=== PATIENT | female | born 1975 | race Caucasian/White ===

== ENCOUNTER → 2018-08-11 | Outpatient (CLI) | payer OTHER ==
[~2018-08-11] MED LIST: ALBUTEROL0.09 MG/A1 IH; ALDACTONE 25MG25 MG PO; CIPRO; CIPRO 500MG TA500 MG PO; CODEINE; CYCLOBENZAPRINE10 MG PO; DEPO-PROVER150 MG/M1 IM; FLAGYL; FLAGYL500 MG PO; LOPRESSOR 225 MG/TAB PO; MAXALT10 MG PO; METHOTREXA2.5 MG/TAB IJ; MVI; NORCO 325 MG-51 TAB PO; PREDNISONE 5MG5 MG PO; PREDNISONE20 MG PO; SYNTHROID 0.0.025 MG PO; TYLENOL 500MG500 MG PO; TYLENOL/CODEINE1 ML PO; VICODIN PO; VITAMIN B1100 MCG/ML IM; VITAMIN D5000 IU; VITAMIN D50000 IU PO; ZOFRAN 4MG T4 MG/TAB PO; [UNRECOGNIZED DRUG - OTHER] PO; [UNRECOGNIZED DRUG - REMARK]
== END ==
LOC: MC.RAD 09:00
DX: Z12.31 Encounter for screening mammogram for malignant neoplasm of breast (principal)

== ENCOUNTER 2018-12-14 23:43 | Emergency (ER) | payer OTHER ==
[~2018-12-14] VITALS: Ht 175.3 cm; Wt 143.2 kg
[~2018-12-14 23:43] MED LIST changes: -VITAMIN B1100 MCG/ML IM; +VITAMIN B11000 MCG/M IM
[2018-12-14 23:52] VITALS: TEMP 98.9
[2018-12-15 00:27] LABS: BASO % 0.2 % (0.0-2.0); EOS % 0.4 % (0-4.0); GRAN # 3.6 (1.4-6.5); HEMOGLOBIN 10.2 g/dl (12.5-16.0); LYMPH # 0.5 (1.2-3.4); MEAN CELL VOLUME 79 fl (80.0-100.0); MEAN CORPUSCULAR HEMOGLOBIN 24 pg (27.0-31.0); MEAN CORPUSCULAR HGB CONC 31 g/dl (33.0-37.0); MEAN PLATELET VOLUME 10.2 fl (7.4-10.4); MONO # 0.4 (0.1-0.6); MONO % 7.7 % (1.7-9.3); PLATELET COUNT 230 K/mm3 (130-400); RED BLOOD COUNT 4.22 M/mm3 (4.10-5.30); REDCELL DISTRIBUTION WIDTH-CV 16.8 % (11.5-14.5)
[2018-12-15 00:30] LABS: HEMATOCRIT 33.4 % (37.0-47.0)
[2018-12-15 00:40] LABS: ALBUMIN 3.5 gm/dL (3.5-5.0); CALCIUM 8.7 mg/dL (8.4-10.2); CREATININE, serum 0.65 (0.52-1.25); POTASSIUM 3.7 mmol/L (3.4-5.0); TOTAL PROTEIN 7.1 gm/dL (6.4-8.2)
[2018-12-15 00:55] LABS: C-REACTIVE PROTEIN 8.1 mg/dL (0.0-0.9)
[2018-12-15] MEDS ORDERED: GUAIFENESIN DA473 ML (01:52)
[2018-12-15] MEDS ORDERED: TOPAMAX 25MG25 M1 (01:52)
[2018-12-15] MEDS ORDERED: FOLIC ACID0.4 MG (01:52)
[2018-12-15] MEDS ORDERED: MEDROL 4MG DOSPA4 MG PO (03:02)
[2018-12-15] MEDS ORDERED: TYLENOL W/COD1 UDTAB PO (03:02)
[2018-12-15 03:21] LABS: COLLECTION METHOD CLEAN CATCH
[2018-12-15 03:28] LABS: MUCOUS Present /lpf; PH 6 (5-8); SQUAMOUS EPITHELIAL 0-2 /hpf; URINE APPEARANCE Clear; URINE BACTERIA None Seen /hpf; URINE BILIRUBIN Negative (NEGATIVE); URINE BLOOD 1+ (NEGATIVE); URINE COLOR Yellow; URINE GLUCOSE Negative (NEGATIVE); URINE KETONE 1+ (NEGATIVE); URINE LEUKOCYTE ESTERASE Negative (NEGATIVE); URINE NITRATE Negative (NEGATIVE); URINE PROTEIN(semi-quant) Negative (NEGATIVE); URINE RBC 0-2 /hpf; URINE UROBILINOGEN Negative (NEGATIVE)
[2018-12-15] MEDS ORDERED: PHENERGAN 25 TA25 MG PO (03:32)
[2018-12-15] MEDS ORDERED: PHENERGAN25 MG RC (03:32)
[2018-12-15 03:53] VITALS: BP 114/63; PULSE 76
== END 2018-12-15 03:53 | disposition home or self-care (01) ==
LOC: COL.ER 23:43
PROVIDERS: Emergency Medicine
DX: K50.90 Crohn's disease, unspecified, without complications (principal); R51 Headache; Z86.69 Personal history of other diseases of the nervous system and sense organs
CPT/HCPCS: J1200; J1885; J2405; J2930; J7030

== ENCOUNTER → 2019-02-01 | Outpatient (CLI) | payer OTHER ==
[~2019-02-01] MED LIST changes: +FOLIC ACID0.4 MG; +GUAIFENESIN DA473 ML; +MEDROL 4MG DOSPA4 MG PO; +PHENERGAN 25 TA25 MG PO; +PHENERGAN25 MG RC; +TOPAMAX 25MG25 M1; +TYLENOL W/COD1 UDTAB PO
== END ==
LOC: COL.RAD 12:30
DX: S83.241A Other tear of medial meniscus, current injury, right knee, initial encounter (principal); M22.41 Chondromalacia patellae, right knee

== ENCOUNTER 2020-02-23 13:36 | Emergency (ER) | payer OTHER ==
[~2020-02-23] VITALS: Ht 175.3 cm; Wt 150.0 kg
[2020-02-23 13:50] VITALS: TEMP 97
[2020-02-23] MEDS ORDERED: TYLENOL W/COD1 UDTAB PO (16:45)
[2020-02-23 17:41] VITALS: BP 128/83; PULSE 91
== END 2020-02-23 17:43 | disposition home or self-care (01) ==
LOC: COL.ER 13:36
DX: S89.92XA Unspecified injury of left lower leg, initial encounter (principal); S83.005A Unspecified dislocation of left patella, initial encounter; X50.1XXA Overexertion from prolonged static or awkward postures, initial encounter; Y92.009 Unspecified place in unspecified non-institutional (private) residence as the place of occurrence of the external cause
CPT/HCPCS: J1885; L1846

== ENCOUNTER → 2020-07-02 | Outpatient (CLI) | payer OTHER | LOC: MC.RAD 10:15 | DX: Z12.31 Encounter for screening mammogram for malignant neoplasm of breast (principal) ==

== ENCOUNTER 2021-02-04 07:41 | Emergency (ER) | payer OTHER ==
[~2021-02-04] VITALS: Ht 175.3 cm; Wt 143.2 kg
[2021-02-04 08:18] LABS: ALANINE AMINOTRANSFERASE 20 U/L (4-34); ALBUMIN 3.9 gm/dL (3.5-5.0); ALKALINE PHOSPHATASE 64 U/L (50-136); ANION GAP 10 mmol/L (7-16); AST,SGOT 29 U/L (15-37); BASO % 0.3 % (0.0-2.0); BILIRUBIN,TOTAL 0.7 mg/dL (0.0-1.0); BLOOD UREA NITROGEN 10 mg/dL (7-17); CALCIUM 8.7 mg/dL (8.4-10.2); CARBON DIOXIDE 23 mmol/L (22-30); CHLORIDE 105 mmol/L (98-107); CREATININE, serum 0.65 (0.52-1.25); EOS # 0.1 (0.0-0.7); EOS % 1.2 % (0-4.0); GLUCOSE 104 mg/dL (74-106); GRAN # 5.8 (1.4-6.5); GRAN % 84.7 % (42.2-75.2); HEMOGLOBIN 12.1 g/dl (12.5-16.0); LYMPH # 0.6 (1.2-3.4); LYMPH % 8.2 % (20.0-51.0); MEAN CELL VOLUME 85 fl (80.0-100.0); MEAN CORPUSCULAR HEMOGLOBIN 26 pg (27.0-31.0); MEAN CORPUSCULAR HGB CONC 30 g/dl (33.0-37.0); MEAN PLATELET VOLUME 10.7 fl (7.4-10.4); MONO # 0.4 (0.1-0.6); MONO % 5.2 % (1.7-9.3); PLATELET COUNT 289 K/mm3 (130-400); POTASSIUM 4.1 mmol/L (3.4-5.0); RED BLOOD COUNT 4.73 M/mm3 (4.10-5.30); REDCELL DISTRIBUTION WIDTH-CV 15.9 % (11.5-14.5); SODIUM 138 mmol/L (137-145); TOTAL PROTEIN 7.3 gm/dL (6.4-8.2)
[2021-02-04 08:30] LABS: TROPONIN-I < 0.012 ng/mL (0.000-0.035)
[2021-02-04 11:37] VITALS: BP 122/92; PULSE 79; TEMP 98.1
== END 2021-02-04 11:37 | disposition home or self-care (01) ==
LOC: COL.ER 07:41
PROVIDERS: Emergency Medicine
DX: R07.9 Chest pain, unspecified (principal); R10.9 Unspecified abdominal pain; R79.0 Abnormal level of blood mineral; K50.90 Crohn's disease, unspecified, without complications; Z90.49 Acquired absence of other specified parts of digestive tract; Z88.8 Allergy status to other drugs, medicaments and biological substances; Z20.822 Contact with and (suspected) exposure to COVID-19
CPT/HCPCS: J2270; J2405; J7030

== ENCOUNTER 2021-03-07 12:27 | Emergency (ER) | payer OTHER ==
[~2021-03-07] VITALS: Ht 175.3 cm; Wt 140.9 kg
[2021-03-07 13:00] LABS: HEMATOCRIT 40.8 % (37.0-47.0); HEMOGLOBIN 12.6 g/dl (12.5-16.0); MEAN CELL VOLUME 83 fl (80.0-100.0); MEAN CORPUSCULAR HEMOGLOBIN 26 pg (27.0-31.0); MEAN CORPUSCULAR HGB CONC 31 g/dl (33.0-37.0); MEAN PLATELET VOLUME 10.6 fl (7.4-10.4); PLATELET COUNT 337 K/mm3 (130-400); RED BLOOD COUNT 4.94 M/mm3 (4.10-5.30); REDCELL DISTRIBUTION WIDTH-CV 15.8 % (11.5-14.5)
[2021-03-07 13:06] LABS: INR 1.1 (0.8-3.0); PROTHROMBIN TIME 12.3 SECONDS (9.7-12.8)
[2021-03-07 13:09] LABS: PARTIAL THROMBOPLASTIN TIME 30.1 SECONDS (26.0-37.0)
[2021-03-07 13:16] LABS: BASO % 0.4 % (0.0-2.0); EOS # 0.1 (0.0-0.7); EOS % 0.8 % (0-4.0); GRAN # 6.1 (1.4-6.5); GRAN % 79.7 % (42.2-75.2); LYMPH # 0.9 (1.2-3.4); LYMPH % 12.2 % (20.0-51.0); MONO # 0.5 (0.1-0.6); MONO % 6.6 % (1.7-9.3)
[2021-03-07 13:30] LABS: TROPONIN-I < 0.012 ng/mL (0.000-0.035)
[2021-03-07 13:44] LABS: TSH w REFLEX 2.688 uIU/mL (0.350-4.940)
[2021-03-07] MEDS ORDERED: TOPROL XL 25MG25 MG PO (14:00)
[2021-03-07] MEDS ORDERED: TAMBOCOR50 MG PO (14:00)
[2021-03-07 14:15] VITALS: TEMP 98.6
[2021-03-07 14:48] VITALS: BP 105/58; PULSE 92
== END 2021-03-07 14:30 | disposition home or self-care (01) ==
LOC: COL.ER 12:27
PROVIDERS: Emergency Medicine
DX: I48.92 Unspecified atrial flutter (principal); Z98.61 Coronary angioplasty status; Z20.822 Contact with and (suspected) exposure to COVID-19
CPT/HCPCS: J0153; J1644

== ENCOUNTER → 2021-08-21 | Outpatient (CLI) | payer OTHER ==
[~2021-08-21] MED LIST changes: +TAMBOCOR50 MG PO; +TOPROL XL 25MG25 MG PO
== END ==
LOC: MC.RAD 07:15
DX: Z12.31 Encounter for screening mammogram for malignant neoplasm of breast (principal)

== ENCOUNTER 2024-01-27 08:04 | Day surgery (SDC) | payer OTHER ==
[~2024-01-27] VITALS: Ht 175.3 cm; Wt 140.6 kg
[~2024-01-27 08:04] MED LIST changes: +LR 1,000 ML IV SCH; +Ondansetron 4 MG/2 ML VIAL IV PRN; +ZOFRAN ODT4 MG PO
[2024-01-27] MEDS ORDERED: PRILOTC (08:51)
[2024-01-27 09:09] VITALS: BP 116/64; PULSE 81; TEMP 96.9
[2024-01-27] MEDS ORDERED: Ondansetron 4 MG/2 ML VIAL ONE (09:46)
[2024-01-27] MEDS ORDERED: Glycopyrrolate 0.2 MG/ML 1 ML VIAL ONE (10:03)
[2024-01-27 10:30] VITALS: BP 126/59; PULSE 66; TEMP 97.1
[2024-01-27 10:45] VITALS: BP 121/62; PULSE 66
[2024-01-27 11:00] VITALS: BP 122/56; PULSE 64
--- NOTE | 2024-01-27 11:20 | NUR ---
1030 RETURNS TO ROOM 6 PER CART. AWAKE, ALERT. RESP UNLABORED. AMBULATES TO RECLINER WITH STANDBY ASSIST. DENIES NAUSEA, ABD/CHEST PAIN OR DYSPHAGIA. VITAL SIGNS OBTAINED. CALL LIGHT AT SIDE. BROTHER IN ROOM 1045 TOLERATES PO WATER AND JUICE WITHOUT NAUSEA. SWALLOWS WITHOUT DIFFICULTY 1055 DR. MILLARD HERE TO VISIT WITH PATIENT 1105 DISCHARGE INSTUCTIONS REVIEWED. PATIENT VERBALIZES UNDERSTANDING. COPY PROVIDED IN DISCHARGE FOLDER. 1115 DRESSES SELF
== END 2024-01-27 11:24 | disposition home or self-care (01) ==
LOC: SDCO 08:04
DX: K29.50 Unspecified chronic gastritis without bleeding (principal); K50.80 Crohn's disease of both small and large intestine without complications; K21.00 Gastro-esophageal reflux disease with esophagitis, without bleeding; K52.9 Noninfective gastroenteritis and colitis, unspecified; D12.2 Benign neoplasm of ascending colon; K62.4 Stenosis of anus and rectum; K60.2 Anal fissure, unspecified
CPT/HCPCS: J2405; J2704; J7120

== ENCOUNTER → 2024-02-17 | Outpatient (CLI) | payer OTHER ==
[~2024-02-17] MED LIST changes: -LR 1,000 ML IV SCH; -Ondansetron 4 MG/2 ML VIAL IV PRN; +PRILOTC
== END ==
LOC: MC.RAD 08:19
DX: Z12.31 Encounter for screening mammogram for malignant neoplasm of breast (principal)